=== PATIENT | male | born 2000 | race Caucasian/White ===

== ENCOUNTER 2019-07-22 20:24 | Emergency (ER) | payer OTHER ==
[2019-07-22 22:01] LABS: Urine Appearance Clear; Urine Bilirubin Negative (Negative); Urine Blood Negative (Negative); Urine Color Yellow; Urine Glucose Negative (Negative); Urine Ketones Negative (Negative); Urine Nitrite Negative (Negative); Urine Protein Negative (Negative); Urine Specific Gravity 1.009 (1.010-1.030); Urine Urobilinogen Negative (Negative)
--- NOTE | 2019-07-22 22:10 | ED ---
GI/ HPI - HPI Summary HPI Summary: 19 year old male presents with right-sided testicular pain since last night. His pain is constant. He states that started in right groin and moved down to his testicle. pain is present in the back of the scrotum. Denies any urinary symptoms. No fevers. No penile discharge. No abdominal pain. No flank pain. No hematuria. No nausea vomiting. Has no medical conditions. Has never had this before. pain is 2 out 10. he had not taken anything for his pain. no diarrhea or constipation. He denies any injury. no swelling or masses to the area that he noticed. - History of Current Complaint Chief Complaint: EDUrogenitalProblems Time Seen by Provider: 07/22/19 21:05 Stated Complaint: GROIN PAIN PER PT Pain Intensity: 2 - Allergy/Home Medications Allergies/Adverse Reactions: Allergies Allergy/AdvReac Type Severity Reaction Status Date / Time No Known Allergies Allergy Verified 07/22/19 20:27 Home Medications: Home Medications NK [No Home Medications Reported] 07/22/19 [History Confirmed 07/22/19] PMH/Surg Hx/FS Hx/Imm Hx Endocrine/Hematology History: Denies: Hx Anticoagulant Therapy Cardiovascular History: Denies: Hx Hypertension - Immunization History Date of Influenza Vaccine: Fall 2018 Immunizations Up to Date: Yes Infectious Disease History: No Infectious Disease History: Denies: Traveled Outside the [place] in Last 30 Days - Family History Known Family History: Positive: Non-Contributory - Social History Alcohol Use: Occasionally Substance Use Type: Reports: Marijuana Smoking Status (MU): Never Smoked Tobacco Review of Systems Negative: Fever Negative: Chest Pain Negative: Shortness Of Breath Positive: other - right groin pain All Other Systems Reviewed And Are Negative: Yes Physical Exam Triage Information Reviewed: Yes Vital Signs On Initial Exam: Initial Vitals Temp Pulse Resp BP Pulse Ox 99.4 F 94 16 139/77 98 07/22/19 20:27 07/22/19 20:27 07/22/19 20:27 07/22/19 20:27 07/22/19 20:27 Vital Signs Reviewed: Yes Appearance: Positive: Well-Appearing Skin: Positive: Warm, Dry Head/Face: Positive: Normal Head/Face Inspection Eyes: Positive: Normal, Conjunctiva Clear ENT: Positive: Pharynx normal Respiratory/Lung Sounds: Positive: Clear to Auscultation, Breath Sounds Present Cardiovascular: Positive: Normal, RRR Abdomen Description: Positive: Nontender, Soft Bowel Sounds: Positive: Present Male Genital Exam: Positive: Scrotum Tenderness (R) - right. Negative: Hernia Mass, Testicular Tenderness (R) Musculoskeletal: Positive: Normal Neurological: Positive: Normal Psychiatric: Positive: Normal Procedures - Sedation Patient Received Moderate/Deep Sedation with Procedure: No Diagnostics - Vital Signs Vital Signs Temp Pulse Resp BP Pulse Ox 07/22/19 20:27 99.4 F 94 16 139/77 98 - Laboratory Lab Results: Lab Results 07/22/19 Range/Units 21:50 Urine Color Yellow Urine Appearance Clear Urine pH 7.0 (5-9) Ur Specific [place] 1.009 L (1.010-1.030) Urine Protein Negative (Negative) Urine Ketones Negative (Negative) Urine Blood Negative (Negative) Urine Nitrate Negative (Negative) Urine Bilirubin Negative (Negative) Urine Urobilinogen Negative (Negative) Ur Leukocyte Esterase Negative (Negative) Urine Glucose Negative (Negative) Lab Statement: Any lab studies that have been ordered have been reviewed, and results considered in the medical decision making process. - Ultrasound No standard instances Ultrasound Interpretation Completed By: Radiologist Summary of Ultrasound Findings: IMPRESSION: 1. Small left hydrocele. Otherwise normal scrotal ultrasound. 2. No evidence of testicular torsion. Please note that partial or intermittent torsion may be sonographically normal. GIGU Course/Dx - Course Course Of Treatment: 19 year old male presents with right-sided testicular pain since last night. His pain is constant. He states that started in right groin and moved down to his testicle. Denies any urinary symptoms. No fevers. No penile discharge. No abdominal pain. No flank pain. No hematuria. No nausea or vomiting. Has no medical conditions. Has never had this before. On exam tenderness of right scrotal area. nontender right testicle. urine shows no infection. Ultrasound shows normal blood flow and left hydrocele. gave referral to urology if needed. patient understand and agrees with plan. - Diagnoses Differential Diagnoses - Male: Testicular Torsion, Urinary Tract Infection, Other - hernia Provider Diagnoses: Right groin pain - Critical Care Time Critical Care Statement: Critical care time is provided exclusive of any time spent performing procedures. Discharge ED - Sign-Out/Discharge Documenting (check all that apply): Patient Departure - Discharge Plan Condition: Good Disposition: HOME Patient Education Materials: Groin Pain (ED) Referrals: No Primary Care Phys,NOPCP [Primary Care Provider] - Pablito Fulton MD [Medical Doctor] - Additional Instructions: follow up with urology if no improvement Take tyenlol or ibuprofen every 6 hours as needed for pain Return to ED if develop any new or worsening symptoms - Billing Disposition and Condition Condition: GOOD Disposition: Home
[2019-07-22 23:55] VITALS: BP 129/66
== END 2019-07-22 23:45 | disposition home or self-care (01) ==
LOC: ED 20:24
DX: N50.811 Right testicular pain (principal); R10.31 Right lower quadrant pain
CPT/HCPCS: 76870; 81003; 99282